=== PATIENT | female | born 1965 | race Two or more races ===

== ENCOUNTER 2017-06-12 08:49 | Outpatient (CLI) | payer OTHER ==
[~2017-06-12] VITALS: Ht 170.2 cm; Wt 89.4 kg
== END 2017-06-12 09:10 | disposition home or self-care (01) ==
LOC: OFIC 805 08:49
DX: R49.0 Dysphonia (principal); H91.8X3 Other specified hearing loss, bilateral

== ENCOUNTER 2017-08-05 15:06 | Outpatient (CLI) | payer OTHER | END 2017-08-05 16:34 | disposition home or self-care (01) | LOC: RAD 501 15:06 | DX: M20.41 Other hammer toe(s) (acquired), right foot (principal); M20.42 Other hammer toe(s) (acquired), left foot ==

== ENCOUNTER 2017-08-26 15:17 | Outpatient (CLI) | payer OTHER ==
[~2017-08-26] VITALS: Ht 152.4 cm; Wt 83.9 kg
== END 2017-08-26 15:45 | disposition home or self-care (01) ==
LOC: OFIC 805 15:17
DX: H93.12 Tinnitus, left ear (principal); H90.3 Sensorineural hearing loss, bilateral